=== PATIENT | female | born 1935 | race Caucasian/White ===

== ENCOUNTER 2017-03-15 11:32 | Outpatient (CLI) | payer MEDICARE | END 2017-03-15 11:33 | disposition home or self-care (01) | LOC: NAV LAB 11:32 | PROVIDERS: ATTEND Family Medicine | DX: I65.21 Occlusion and stenosis of right carotid artery (principal) | CPT/HCPCS: 36415; 82565 ==

== ENCOUNTER 2017-07-04 08:33 | Outpatient (CLI) | payer MEDICARE ==
[2017-07-04 09:56] LABS: ALT (SGPT) 15 U/L (8-55); AST (SGOT) 21 U/L (5-34); Albumin 4.1 g/dL (3.4-4.8); Alkaline Phosphatase 84 U/L (40-150); Bilirubin, Direct 0.2 mg/dL (0.1-0.3); Bilirubin, Total 0.5 mg/dL (0.2-1.2); Cholesterol 227 mg/dl (< 200 Desired); HDL Cholesterol 76 mg/dL (>60 Neg Risk); LDL Cholesterol, Calculated 115 mg/dL; Protein, Total 7.5 g/dL (6.0-8.3); Triglycerides 181 mg/dL (Less than 150)
== END 2017-07-04 08:34 | disposition home or self-care (01) ==
LOC: NAV LAB 08:33
PROVIDERS: ATTEND Family Medicine
DX: E78.2 Mixed hyperlipidemia (principal)
CPT/HCPCS: 36415; 80061; 80076